=== PATIENT | male | born 1970 | race Caucasian/White ===

== ENCOUNTER 2019-07-13 10:04 | Outpatient (CLI) | payer BC ==
--- NOTE | 2019-07-13 10:28 | RAD ---
EXAM: XR Foot Lt 3 View STANDARD PROVIDED CLINICAL HISTORY: Pain FINDINGS: There is no evidence for fracture or other acute osseous abnormality. There is lateral deviation of t he second digit distal phalanx with respect to the middle phalanx. Alignment appears otherwise anatomic. Joint spaces appear preserved. IMPRESSION: No evidence for an acute osseous abnormality or significant arthropathy.
== END 2019-07-13 10:05 | disposition home or self-care (01) ==
LOC: SCSRAD 10:04
PROVIDERS: ATTEND Podiatrist
DX: M79.671 Pain in right foot (principal); M79.672 Pain in left foot; M20.40 Other hammer toe(s) (acquired), unspecified foot; M79.4 Hypertrophy of (infrapatellar) fat pad

== ENCOUNTER 2020-04-10 08:16 | Outpatient (CLI) | payer BC ==
--- NOTE | 2020-04-10 12:06 | CT ---
CT ABDOMEN AND PELVIS WITH AND WITHOUT IV CONTRAST: HISTORY: A 49-year-old male with hematuria, urinary frequency. COMPARISON: None. FINDINGS: The lung bases are clear. No calcified gallstones are seen. There is a 2 cm cyst in the medial segm ent of the left lobe of the liver. A couple of tiny low-density lesions are seen in the right lobe o f the liver, too small to characterize. The spleen, pancreas, and adrenal glands are normal. No calculi are seen in the kidneys, ureters, or the urinary bladder. No hydroureteral nephrosis is n oted on either side. The prostate is mildly enlarged. There is a 6.5 cm exophytic cystic mass arisi ng from the inferior pole of the right kidney with thin internal septations. There is a 1 cm low-den sity lesion involving the medial aspect of the left mid renal cortex which does not have features of a simple cyst. There is normal contrast excretion into the ureters and urinary bladder. No free air, free fluid, or lymphadenopathy is seen in the abdomen or pelvis. No aneurysmal dilatati on of the abdominal aorta is noted. There are degenerative changes in the spine. IMPRESSION: 1. No CT evidence of urinary tract calculi or obstruction. 2. A 6.5 cm septated cyst arising from the inferior pole of the right kidney. 3. A 1 cm indeterminate lesion in the left kidney. 4. Prostatic enlargement. 5. Hepatic cysts. RECOMMENDATION: A 6-month followup is recommended. POS: OFF
== END 2020-04-10 08:17 | disposition home or self-care (01) ==
LOC: SCSCT 08:16
PROVIDERS: ATTEND Urology
DX: R31.29 Other microscopic hematuria (principal); N28.1 Cyst of kidney, acquired; N40.0 Benign prostatic hyperplasia without lower urinary tract symptoms; K76.89 Other specified diseases of liver
CPT/HCPCS: 74178

== ENCOUNTER 2021-05-09 10:02 | Outpatient (CLI) | payer BC | END 2021-05-09 10:03 | disposition home or self-care (01) | LOC: BICULT 10:02 | PROVIDERS: ATTEND Urology | DX: N28.1 Cyst of kidney, acquired (principal); R35.1 Nocturia; R39.198 Other difficulties with micturition | CPT/HCPCS: 76770 ==